=== PATIENT | female | born 2000 | race Caucasian/White ===

== ENCOUNTER 2018-05-21 10:18 | Emergency (ER) | payer OTHER ==
[2018-05-21 11:17] VITALS: BP 118/70
== END 2018-05-21 11:40 | disposition left against medical advice (07) ==
LOC: UCCORT 10:18
DX: Z53.21 Procedure and treatment not carried out due to patient leaving prior to being seen by health care provider (principal)

== ENCOUNTER 2019-05-11 12:58 | Emergency (ER) | payer OTHER ==
[2019-05-11 13:54] VITALS: BP 108/82
--- NOTE | 2019-05-11 14:33 | UC ---
Throat Pain/Nasal Yazan HPI - HPI Summary HPI Summary: 19 y/o female presents to the urgent care c/o Sore throat for the past 2 days. This morning she woke up with nausea and mild sinus congestion. Pain w/ swallowing is 4/10 and she has not taken anything to alleviate symptoms. She is concerned w/ strep. Pt is eating well, drinking fluids, urinating well, s/ normal BM. She is UTD w/ all vaccines for her age. She denies recent travel outside the country. Pt denies fever, cough, PEÑA, body aches, chills, dizziness, chest pain, abdominal pain, N/V/D. - History of Current Complaint Chief Complaint: UCGeneralIllness Stated Complaint: SORE THROAT Time Seen by Provider: 05/11/19 14:26 Hx Obtained From: Patient Hx Last Menstrual Period: 05/01/2019 Onset/Duration: Gradual Onset, Lasting Days - 2 DAYS, Still Present Severity: Mild Pain Intensity: 4 Pain Scale Used: 0-10 Numeric Cough: None Associated Signs & Symptoms: Positive: Nasal Discharge - clear. Negative: Dysphagia, Wheezing, Sinus Discomfort, Fever, Vomiting, Rash - Epiglottits Risk Factors Epiglottis Risk Factors: Negative - Allergies/Home Medications Allergies/Adverse Reactions: Allergies Allergy/AdvReac Type Severity Reaction Status Date / Time No Known Allergies Allergy Verified 05/11/19 13:51 Home Medications: Home Medications NK [No Home Medications Reported] 05/21/18 [History Confirmed 05/11/19] PMH/Surg Hx/FS Hx/Imm Hx Previously Healthy: Yes - Pt denies PMHX - Surgical History Surgical History: Yes Surgery Procedure, Year, and Place: WISDOM TEETH - Family History Known Family History: Positive: Hypertension - Social History Occupation: Student Lives: With Family Alcohol Use: Occasionally Substance Use Type: None Smoking Status (MU): Never Smoked Tobacco Type: eCigarettes Amount Used/How Often: vapes - Immunization History Vaccination Up to Date: Yes Review of Systems All Other Systems Reviewed And Are Negative: Yes Constitutional: Positive: Negative Skin: Positive: Negative Eyes: Positive: Negative ENT: Positive: Sore Throat, Nasal Discharge - clear, Sinus Congestion Respiratory: Positive: Negative Cardiovascular: Positive: Negative Gastrointestinal: Positive: Nausea Genitourinary: Positive: Negative Motor: Positive: Negative Neurovascular: Positive: Negative Musculoskeletal: Positive: Negative Neurological/Mental Status: Positive: Negative Psychological: Positive: Negative Is Patient Immunocompromised?: No Physical Exam - Summary Physical Exam Summary: VITAL SIGNS: Reviewed. GENERAL: Patient is a well developed and nourished female who is sitting comfortably in the examining table. Patient is not in any acute respiratory distress. HEAD AND FACE: No signs of trauma. No ecchymosis, hematomas or skull depressions. No sinus tenderness. EYES: PERRLA, EOMI x 2, No injected conjunctiva, no nystagmus. No photophobia. EARS: Hearing grossly intact. Ear canals and tympanic membranes are within normal limits. MOUTH: Positive pharynx with mild erythema, no exudates, No B/L tonsillar enlargement , no exudate. Uvula in midline. edematous nasal mucosa w/ clear nasal discharge, clear PND NECK: Supple, trachea is midline, Positive anterior cervical lymphadenopathy, no JVD, no carotid bruit, no c-spine tenderness, neck with full ROM. No meningeal signs, no Kernig's or brudzinskis signs. CHEST: Symmetric, no tenderness at palpation LUNGS: Clear to auscultation bilaterally. No wheezing or crackles. CVS: Regular rate and rhythm, S1 and S2 present, no murmurs or gallops appreciated. ABDOMEN: Soft, non-tender. No signs of distention. No rebound no guarding, and no masses palpated. Bowel sounds are normal. EXTREMITIES: FROM in all major joints, no edema, no cyanosis or clubbing. NEURO: Alert and oriented x 3. No acute neurological deficits. Pt follows commands. SKIN: Dry and warm Triage Information Reviewed: Yes Vital Signs: Initial Vital Signs Temp 98.3 F 05/11/19 13:47 Pulse 60 05/11/19 13:47 Resp 14 05/11/19 13:47 BP 108/82 05/11/19 13:47 Pulse Ox 100 05/11/19 13:47 Throat Pain/Nasal Course/Dx - Course Course Of Treatment: 19 y/o female presents to the urgent care c/o Sore throat for the past 2 days. This morning she woke up with nausea and mild sinus congestion. Pain w/ swallowing is 4/10 and she has not taken anything to alleviate symptoms. She is concerned w/ strep. Pt is eating well, drinking fluids, urinating well, s/ normal BM. She is UTD w/ all vaccines for her age. She denies recent travel outside the country. Pt denies fever, cough, PEÑA, body aches, chills, dizziness, chest pain, abdominal pain, N/V/D. Hx obtained. Rapid strep ordered, result: negative. Viral pharyngitis.Pt advised symptomatic treatment and to take ibuprofen PO to alleviates symptoms of pain and swelling. Advised on hand washing to avoid spreading. Pt advised to rest, eat well and avoid strenuous exercise. If symptoms do not improve or worsen advised to return to the urgent care or f/u with her PCP for further evaluation and treatment. Pt understood and agreed w/ plan of care. - Differential Dx/Diagnosis Differential Diagnosis/HQI/PQRI: Laryngitis, Mononucleosis, Otitis Media, Pharyngitis, Sinusitis, Tonsillitis, URI Provider Diagnosis: Acute viral pharyngitis Discharge ED - Sign-Out/Discharge Documenting (check all that apply): Patient Departure - D/C home All imaging exams completed and their final reports reviewed: No Studies - Discharge Plan Condition: Stable Disposition: HOME Patient Education Materials: Pharyngitis (ED) Referrals: Hiral Pyle MD [Primary Care Provider] - 3 Days Additional Instructions: 1-Please take ibuprofen PO q6-8hrs prn as instructed after meals to alleviate pain and swelling. Increase fluid intake, eat well, rest and avoid strenuous exercise 2-If symptoms do not improve or worsen please return to the urgent care or f/u with your PCP in 3 days for further evaluation and treatment. - Billing Disposition and Condition Condition: STABLE Disposition: Home
== END 2019-05-11 14:47 | disposition home or self-care (01) ==
LOC: UCCORT 12:58
DX: J02.8 Acute pharyngitis due to other specified organisms (principal)
CPT/HCPCS: 87651; 99211; G0463

== ENCOUNTER 2022-09-08 09:42 | Inpatient (IN) ==
[2022-09-08] MEDS ORDERED: Al Hydrox/Mg Hydrox/Simet LIQ 30 ML UDC PO PRN (11:42)
[2022-09-10 07:57] LABS: HDL Cholesterol 38.9 mg/dL
[2022-09-10 10:39] VITALS: BP 110/63
== END 2022-09-10 11:15 | disposition home or self-care (01) | DRG 752 ==
LOC: ED 09:42 → EDHOLD 11:42 → BSU 13:08
PROVIDERS: ADMIT Psychiatry & Neurology Psychiatry; ATTEND Psychiatry & Neurology Psychiatry